=== PATIENT | male | born 1925 | race Caucasian/White ===

== ENCOUNTER → 2016-07-09 | Outpatient (CLI) | payer MEDICARE, OTHER ==
[~2016-07-09] MED LIST: BUSPIRONE HCL5 MG PO; COZAAR25 MG PO; COZAAR50 MG PO; ELIQUIS5 MG PO; MONTELUKAST SOD10 MG PO; NORVASC5 MG PO; PREDNISONE5 MG PO
== END ==
LOC: HEART 5 10:00
DX: J45.40 Moderate persistent asthma, uncomplicated (principal)
CPT/HCPCS: 94060